=== PATIENT | male | born 1990 | race Two or more races ===

== ENCOUNTER 2025-08-26 10:51 | Outpatient (CLI) | payer OTHER ==
[2025-08-26 11:35] LABS: Urine Protein, UAD Negative (Negative)
[2025-08-26 11:36] LABS: Hematocrit 44.0 % (41.0-53.0); Hemoglobin 15.9 g/dL (13.5-17.5); Mean Corpuscular Hemoglobin 31.9 pg (28.0-32.0); Mean Corpuscular Volume 87.8 fL (80.0-100.0); Nucleated Red Blood Cells % 0.7 %
[2025-08-26 12:00] LABS: Albumin 4.7 g/dL (3.2-4.8); Alkaline Phosphatase 107 U/L (46-116); Anion Gap 9 (5-15); BUN/Creatinine Ratio 15.0 (10.0-20.0); Blood Urea Nitrogen 16 mg/dL (9-23); Calcium 9.2 mg/dL (8.7-10.4); Carbon Dioxide 27 mmol/L (20-31); Chloride 105 mmol/L (98-107); Cholesterol 161 mg/dL (< 200); Potassium 4.0 mmol/L (3.5-5.1); Sodium 141 mmol/L (136-145); Total Protein 7.7 g/dL (5.7-8.2)
[2025-08-26 12:02] LABS: Alanine Aminotransferase 50 U/L (7-40); Bilirubin, Total 1.6 mg/dL (0.2-1.0); Glucose 124 mg/dL (74-106); HDL Cholesterol 31 mg/dL (40-59); Triglycerides 397 mg/dL (< 150)
[2025-08-26 12:14] LABS: Uric Acid 9.3 mg/dL (3.7-9.2)
== END 2025-08-26 17:00 | disposition home or self-care (01) ==
LOC: LAB 10:51
PROVIDERS: ATTEND Nurse Practitioner Family
DX: M10.9 Gout, unspecified (principal); Z00.01 Encounter for general adult medical examination with abnormal findings
CPT/HCPCS: 36415; 80053; 80061; 81001; 83036; 84443; 84550; 85025